=== PATIENT | female | born 1940 | race Caucasian/White ===

== ENCOUNTER → 2018-08-10 | Outpatient (CLI) | payer MEDICARE ==
[~2018-08-10] MED LIST: CEPH500 PO; DICL75ER; ESCI5; HYDACE25S PR; HYDCOR2.5C PR; LORA.5 PO; OMEP10ER PO; ONDA4 PO; OXYACE5T PO; THYR60
== END | disposition home or self-care (01) ==
LOC: LAB SHORT 07:44 → PLD 07:44
DX: D49.2 Neoplasm of unspecified behavior of bone, soft tissue, and skin (principal)
CPT/HCPCS: 88304

== ENCOUNTER 2023-01-04 19:12 | Emergency (ER) | payer OTHER ==
[~2023-01-04] VITALS: Ht 167.6 cm; Wt 68.0 kg
[2023-01-04 19:26] VITALS: BP 134/60
[2023-01-04] MEDS ORDERED: AMOCLA875 PO (21:05)
== END 2023-01-04 22:33 | disposition home or self-care (01) ==
LOC: ER 19:12
DX: S61.452A Open bite of left hand, initial encounter (principal); W55.01XA Bitten by cat, initial encounter; Z23 Encounter for immunization; Z88.5 Allergy status to narcotic agent; Z88.1 Allergy status to other antibiotic agents; Z79.890 Hormone replacement therapy; Z79.899 Other long term (current) drug therapy
CPT/HCPCS: 90471; 90715; 96365; 96375; 99283-25; J0295; J1885

== ENCOUNTER → 2024-01-03 | Outpatient (CLI) | payer OTHER ==
[~2024-01-03] MED LIST changes: +AMOCLA875 PO
[2024-01-03 23:21] LABS: Adenovirus F 40/41 Not Detected (NOT DETECT); Astrovirus Not Detected (NOT DETECT); Campylobacter Sp Not Detected (NOT DETECT); Cryptosporidium Not Detected (NOT DETECT); Cyclospora Cayetanensis Not Detected (NOT DETECT); E. Coli O157 Not Detected (NOT DETECT); Entamoeba Histolytica Not Detected (NOT DETECT); Enteroaggregative E. coli-EAEC Not Detected (NOT DETECT); Enteropathogenic E. coli-EPEC Not Detected (NOT DETECT); Enterotoxigenic E. coli-ETEC Not Detected (NOT DETECT); Giardia Lamblia Not Detected (NOT DETECT); Norovirus GI/GII Not Detected (NOT DETECT); Plesiomonas Shigelloides Not Detected (NOT DETECT); Rotavirus A Not Detected (NOT DETECT); Salmonella Sp Not Detected (NOT DETECT); Sapovirus Not Detected (NOT DETECT); Shiga Toxin-prod E. coli-STEC Detected (NOT DETECT); Shigella/Enteroin E. coli-EIEC Not Detected (NOT DETECT); Vibrio Cholerae Not Detected (NOT DETECT); Vibrio Sp Not Detected (NOT DETECT); Yersinia Enterocolitica Not Detected (NOT DETECT)
[2024-01-04 14:56] LABS: Stool Occult Bld Immuno 1 Negative (NEGATIVE)
[2024-01-11 20:22] LABS: OVA AND PARASITE,FECAL INTERP Negative (Negative)
== END | disposition home or self-care (01) ==
LOC: LAB 10:40 → LAB SHORT 10:40
PROVIDERS: Family Medicine
DX: K52.9 Noninfective gastroenteritis and colitis, unspecified (principal)
CPT/HCPCS: 87177; 87209; 87507; 89055; G0328

== ENCOUNTER → 2024-03-17 | Outpatient (CLI) | payer OTHER ==
[2024-03-17 16:56] LABS: Adenovirus F 40/41 Not Detected (NOT DETECT); Astrovirus Not Detected (NOT DETECT); Campylobacter Sp Not Detected (NOT DETECT); Cryptosporidium Not Detected (NOT DETECT); Cyclospora Cayetanensis Not Detected (NOT DETECT); E. Coli O157 Not Detected (NOT DETECT); Entamoeba Histolytica Not Detected (NOT DETECT); Enteroaggregative E. coli-EAEC Not Detected (NOT DETECT); Enteropathogenic E. coli-EPEC Not Detected (NOT DETECT); Enterotoxigenic E. coli-ETEC Not Detected (NOT DETECT); Giardia Lamblia Not Detected (NOT DETECT); Norovirus GI/GII Not Detected (NOT DETECT); Plesiomonas Shigelloides Not Detected (NOT DETECT); Rotavirus A Not Detected (NOT DETECT); Salmonella Sp Not Detected (NOT DETECT); Sapovirus Not Detected (NOT DETECT); Shiga Toxin-prod E. coli-STEC Not Detected (NOT DETECT); Shigella/Enteroin E. coli-EIEC Not Detected (NOT DETECT); Vibrio Cholerae Not Detected (NOT DETECT); Vibrio Sp Not Detected (NOT DETECT); Yersinia Enterocolitica Not Detected (NOT DETECT)
== END ==
LOC: LAB 10:05 → LAB SHORT 10:05
PROVIDERS: Physician Assistant
DX: K52.9 Noninfective gastroenteritis and colitis, unspecified (principal)
CPT/HCPCS: 87507

== ENCOUNTER → 2024-04-17 | Outpatient (CLI) | payer OTHER | LOC: LAB 16:07 → LAB SHORT 16:07 | DX: R82.81 Pyuria (principal) | CPT/HCPCS: 87086 ==

== ENCOUNTER → 2024-05-31 | Outpatient (CLI) | payer OTHER | LOC: LAB SHORT 10:36 → LAB 10:36 | DX: R39.9 Unspecified symptoms and signs involving the genitourinary system (principal) | CPT/HCPCS: 87086 ==

== ENCOUNTER 2024-07-11 08:10 | Day surgery (SDC) | payer OTHER ==
[~2024-07-11] VITALS: Ht 167.6 cm; Wt 58.2 kg
[~2024-07-11 08:10] MED LIST changes: +Lactated Ringer's 1,000 ML IV ONE; +propofoL 50 ML IV ONE
[2024-07-11] MEDS ORDERED: EUTHYROX75 MC1 (08:50)
[2024-07-11] MEDS ORDERED: METOPROLOL SUCC25 MG (08:51)
[2024-07-11] MEDS ORDERED: CENTRUM SILVER1 EAC2 (08:52)
[2024-07-11] MEDS ORDERED: DIGOX125 MC1 (08:52)
[2024-07-11] MEDS ORDERED: [UNRECOGNIZED DRUG - OTHER] (08:53)
[2024-07-11] MEDS ORDERED: FISH OIL 1,0001 EA10 (08:54)
[2024-07-11] MEDS ORDERED: CLOBETASOL EMOL15 G1 (08:55)
[2024-07-11] MEDS ORDERED: CLOBETTC (08:55)
[2024-07-11] MEDS ORDERED: [UNRECOGNIZED DRUG - CODE] (08:55)
[2024-07-11] MEDS ORDERED: LOPRESSOR5 MG/5 M1 (08:56)
[2024-07-11] MEDS ORDERED: Lactated Ringer's 1,000 ML IV ONE (09:36)
[2024-07-11 12:35] VITALS: BP 113/56
== END 2024-07-11 10:43 | disposition home or self-care (01) ==
LOC: ORSCSDS 08:10
PROVIDERS: Specialist
PROC: 0DBE8ZX Excision of Large Intestine, Via Natural or Artificial Opening Endoscopic, Diagnostic (ICD-10-PCS; principal; 2024-07-11 09:45)
DX: R19.4 Change in bowel habit (principal); K64.8 Other hemorrhoids; K57.30 Diverticulosis of large intestine without perforation or abscess without bleeding; I48.91 Unspecified atrial fibrillation; Z79.899 Other long term (current) drug therapy
CPT/HCPCS: 88305; J2704; J7120

== ENCOUNTER 2024-07-20 20:50 | Emergency (ER) | payer OTHER ==
[~2024-07-20] VITALS: Ht 167.6 cm; Wt 62.1 kg
[~2024-07-20 20:50] MED LIST changes: +CENTRUM SILVER1 EAC2; +CLOBETASOL EMOL15 G1; +CLOBETTC; +DIGOX125 MC1; +EUTHYROX75 MC1; +FISH OIL 1,0001 EA10; +LOPRESSOR5 MG/5 M1; -Lactated Ringer's 1,000 ML IV ONE; +METOPROLOL SUCC25 MG; +[UNRECOGNIZED DRUG - CODE]; +[UNRECOGNIZED DRUG - OTHER]; -propofoL 50 ML IV ONE
[2024-07-20 21:18] LABS: BASOPHILS ABSOLUTE AUTO 0.05 K/mm3 (0.00-0.23); BASOPHILS PERCENT AUTO 0 % (0-2); EOSINOPHILS ABSOLUTE AUTO 0.11 K/mm3 (0.00-0.68); EOSINOPHILS PERCENT AUTO 1 % (0-6); Hematocrit 37.2 % (33.0-51.0); IMMATURE GRAN ABSOLUTE AUTO 0.05 K/mm3 (0.00-0.10); IMMATURE GRAN PERCENT AUTO 0 % (0-1); LYMPHOCYTES ABSOLUTE AUTO 1.58 K/mm3 (0.84-5.20); LYMPHOCYTES PERCENT AUTO 12 % (21-46); MONOCYTES ABSOLUTE AUTO 0.99 K/mm3 (0.16-1.47); MONOCYTES PERCENT AUTO 8 % (4-13); Mean Corpuscular HGB 30.1 pg (26.0-34.0); Mean Corpuscular HGB Conc 32.3 g/dL (31.5-36.5); Mean Corpuscular Volume 93 fL (80-100); Mean Platelet Volume 9.6 fL (9.1-12.4); NEUTROPHILS ABSOLUTE AUTO 10.11 K/mm3 (1.96-9.15); NEUTROPHILS PERCENT AUTO 78 % (41-73); Platelet Count 203 K/mm3 (150-400); RDW Coefficient Variation 13.4 % (11.7-14.2); RDW Standard Deviation 45.6 fL (35.1-46.3); Red Blood Cell Count 3.99 M/mm3 (3.80-5.20); White Blood Cell Count 12.89 K/mm3 (4.00-11.30)
[2024-07-20 21:51] LABS: Albumin, Blood 3.7 g/dL (3.4-5.0); Bilirubin, Total 0.3 mg/dL (0.1-1.0); Bun/Creatinine Ratio 17.1 (12.0-20.0); Calcium, Blood 9.3 mg/dL (8.5-10.1); Creatinine, Blood 1.11 mg/dL (0.40-1.00); Globulin, Blood 3.7 g/dL (2.2-4.0); Potassium, Blood 3.8 mmol/L (3.5-5.5); Total Protein, Blood 7.4 g/dL (6.4-8.2)
[2024-07-20] MEDS ORDERED: OxyCODONE 5 mg/Acetamin 325 mg TABLET PO ONE (22:10)
[2024-07-20] MEDS ORDERED: Ampicillin Sod/Sulbactam Sod 3 GM in NS 100 ML IV ONE (22:10)
[2024-07-20] MEDS ORDERED: NS 1,000 ML IV SCH (23:10)
[2024-07-20] MEDS ORDERED: FentaNYL Citrate 50 MCG/ML 2 ML Injection IV ONE (23:10)
[2024-07-21] MEDS ORDERED: Ondansetron HCl 2 MG / ML 2ML Vial IV ONE ×2 (00:45→02:05)
[2024-07-21] MEDS ORDERED: HYDROmorphone HCl/Pf 1MG SYR IV ONE (00:45)
[2024-07-21] MEDS ORDERED: Ampicillin Sod/Sulbactam Sod 3 GM in NS 100 ML IV ONE (04:15)
[2024-07-21 05:22] VITALS: BP 108/83
== END 2024-07-21 05:37 | disposition short-term general hospital (02) ==
LOC: ER 20:50
PROVIDERS: Student in an Organized Health Care Education/Training Program
DX: S61.052A Open bite of left thumb without damage to nail, initial encounter (principal); L03.012 Cellulitis of left finger; Z18.9 Retained foreign body fragments, unspecified material; W55.01XA Bitten by cat, initial encounter; Z79.899 Other long term (current) drug therapy; Z88.5 Allergy status to narcotic agent; Z88.1 Allergy status to other antibiotic agents; Z88.8 Allergy status to other drugs, medicaments and biological substances
CPT/HCPCS: 73140; 73201; 80053; 85025; 85651; 86140; 96365; 96375; 96375-59; 96376-59; 99285-25; A9270; J0295; J1171; J2405; J3010; J7030; Q9967

== ENCOUNTER → 2024-07-26 | Outpatient (CLI) | payer OTHER | LOC: LAB SHORT 12:00 → LAB 12:00 | DX: L08.9 Local infection of the skin and subcutaneous tissue, unspecified (principal); D48.5 Neoplasm of uncertain behavior of skin; A28.1 Cat-scratch disease; S61.002A Unspecified open wound of left thumb without damage to nail, initial encounter; L40.0 Psoriasis vulgaris | CPT/HCPCS: 87070; 87205 ==